=== PATIENT | male | born 1970 | race Caucasian/White ===

== ENCOUNTER 2016-08-27 17:17 | Inpatient (IN) | payer MEDICARE, OTHER ==
[~2016-08-27] VITALS: Ht 182.9 cm; Wt 166.0 kg
[~2016-08-27 17:17] MED LIST: ACETAMINOPHEN325 MG PO; ASPIR 8181 MG PO; BACLOFEN10 MG PO; CARDIZEM CD240 MG PO; CLINDAMYCIN HC300 MG PO; COMBIVENT RESPIM4 GM IH; DURAGESIC1 EAC1 TD; DURAGESIC25 MCG TOP; LACTINEX CHEWA1 EACH PO; LASIX20 MG PO; LEVAQUIN500 MG PO; LEVAQUIN750 MG PO; LISINOPRIL-HCT1 EAC2 PO; LYRICA75 MG PO; NICOTINE TRANSD21 MG TOP; POTASSIUM CHLO10 MEQ PO; PREDNISONE10 MG PO; ROXICODONE5 MG PO; SYMBICORT 80-10.2 GM IH; TOPROL XL25 MG PO; XARELTO20 MG PO; XOPENEX HFA15 GM IH; ZOCOR10 MG PO; ZOLOFT50 MG PO
--- NOTE | 2016-08-28 09:58 | NUR ---
0995 PT. HR 140-150S SKIN W/D COLOR PINK RESP EASY NON-LABORED PT. STATES FEELS SOME BETTER B/P 138/80 DR. EISENBERG NOTIFIED EKG DONE
== END 2016-08-31 14:29 | disposition home health service (06) | DRG 190 ==
LOC: ER 17:17 → MED 20:19
PROVIDERS: ADMIT Internal Medicine
DX: J44.0 Chronic obstructive pulmonary disease with (acute) lower respiratory infection (principal); I50.33 Acute on chronic diastolic (congestive) heart failure; J96.10 Chronic respiratory failure, unspecified whether with hypoxia or hypercapnia; Z68.43 Body mass index [BMI] 50.0-59.9, adult; J20.9 Acute bronchitis, unspecified; J44.1 Chronic obstructive pulmonary disease with (acute) exacerbation; I11.0 Hypertensive heart disease with heart failure; Z99.81 Dependence on supplemental oxygen; D72.829 Elevated white blood cell count, unspecified; G89.4 Chronic pain syndrome; E66.01 Morbid (severe) obesity due to excess calories; F17.210 Nicotine dependence, cigarettes, uncomplicated; I25.10 Atherosclerotic heart disease of native coronary artery without angina pectoris; I25.2 Old myocardial infarction; E78.5 Hyperlipidemia, unspecified; K21.9 Gastro-esophageal reflux disease without esophagitis; Z86.718 Personal history of other venous thrombosis and embolism; L40.9 Psoriasis, unspecified; Z79.82 Long term (current) use of aspirin; Z79.01 Long term (current) use of anticoagulants; Z79.899 Other long term (current) drug therapy; Z88.5 Allergy status to narcotic agent; Z88.2 Allergy status to sulfonamides; G47.30 Sleep apnea, unspecified; R13.10 Dysphagia, unspecified
CPT/HCPCS: 36415; 87502

== ENCOUNTER 2016-08-27 17:17 | Emergency (ER) | payer MEDICARE, OTHER | END 2016-08-27 20:18 | disposition critical access hospital (66) | LOC: ER 17:17 | DX: J44.1 Chronic obstructive pulmonary disease with (acute) exacerbation (principal); R60.9 Edema, unspecified; L03.311 Cellulitis of abdominal wall; D72.829 Elevated white blood cell count, unspecified; E66.01 Morbid (severe) obesity due to excess calories; I10 Essential (primary) hypertension; E78.00 Pure hypercholesterolemia, unspecified; I25.2 Old myocardial infarction; K21.9 Gastro-esophageal reflux disease without esophagitis; F17.290 Nicotine dependence, other tobacco product, uncomplicated; Z68.41 Body mass index [BMI] 40.0-44.9, adult; Z88.5 Allergy status to narcotic agent; Z88.1 Allergy status to other antibiotic agents; Z79.899 Other long term (current) drug therapy; Z79.82 Long term (current) use of aspirin | CPT/HCPCS: 36415; 87502; 96365; 96375 ==

== ENCOUNTER 2016-09-05 14:15 | Emergency (ER) | payer MEDICARE, OTHER | END 2016-09-05 18:15 | disposition short-term general hospital (02) | LOC: ER 14:15 | DX: I11.0 Hypertensive heart disease with heart failure (principal); I50.9 Heart failure, unspecified; M54.2 Cervicalgia; M54.6 Pain in thoracic spine; M79.601 Pain in right arm; M79.602 Pain in left arm; E87.1 Hypo-osmolality and hyponatremia; R60.0 Localized edema; R73.9 Hyperglycemia, unspecified; K21.9 Gastro-esophageal reflux disease without esophagitis; I25.2 Old myocardial infarction; E78.5 Hyperlipidemia, unspecified; J44.9 Chronic obstructive pulmonary disease, unspecified; E66.9 Obesity, unspecified; Z99.81 Dependence on supplemental oxygen; Z79.82 Long term (current) use of aspirin; Z79.899 Other long term (current) drug therapy; Z88.1 Allergy status to other antibiotic agents; Z88.5 Allergy status to narcotic agent; Z68.39 Body mass index [BMI] 39.0-39.9, adult | CPT/HCPCS: 36415; 96361; 96374; 96375; 96376; J1940; J2060 ==